=== PATIENT | male | born 1945 | race Caucasian/White ===

== ENCOUNTER 2020-10-24 10:46 | Inpatient (IN) | payer OTHER ==
[~2020-10-24] VITALS: Ht 188 cm; Wt 99.8 kg
[2020-10-24 11:14] LABS: HEMOGLOBIN 14.6 gm/dl (14.0-17.5); RED BLOOD COUNT 4.83 M/UL (4.20-5.50); WHITE BLOOD COUNT 20.6 K/UL (4.5-11.0)
[2020-10-24] MEDS ORDERED: LIPITOR40 MG PO (16:47)
[2020-10-24] MEDS ORDERED: SODIUM BICARBO650 M1 PO (16:47)
[2020-10-24] MEDS ORDERED: COREG12.5 MG PO (16:47)
[2020-10-24] MEDS ORDERED: NEURONTIN300 MG PO (16:47)
[2020-10-24] MEDS ORDERED: PROSCAR 5 MG TAB5 MG PO (16:48)
[2020-10-24] MEDS ORDERED: NORVASC10 MG PO (16:48)
[2020-10-24] MEDS ORDERED: RESTASIS 0.05%1 EACH EYEBOTH (16:49)
[2020-10-24] MEDS ORDERED: GLUCOSAMINE H1500 MG PO (17:08)
[2020-10-24] MEDS ORDERED: ASPIRIN EC81 MG PO (17:08)
[2020-10-25 02:23] LABS: HEMOGLOBIN 12.8 gm/dl (14.0-17.5)
[2020-10-25 02:26] LABS: RED BLOOD COUNT 4.24 M/UL (4.20-5.50); WHITE BLOOD COUNT 11.8 K/UL (4.5-11.0)
[2020-10-26 04:05] LABS: HEMOGLOBIN 13.4 gm/dl (14.0-17.5); RED BLOOD COUNT 4.46 M/UL (4.20-5.50)
[2020-10-26 04:08] LABS: WHITE BLOOD COUNT 8.8 K/UL (4.5-11.0)
[2020-10-27 02:58] LABS: HEMOGLOBIN 13.4 gm/dl (14.0-17.5); RED BLOOD COUNT 4.61 M/UL (4.20-5.50); WHITE BLOOD COUNT 7.9 K/UL (4.5-11.0)
[2020-10-28 03:33] LABS: HEMOGLOBIN 13.9 gm/dl (14.0-17.5); RED BLOOD COUNT 4.66 M/UL (4.20-5.50); WHITE BLOOD COUNT 7.4 K/UL (4.5-11.0)
[2020-10-29 03:22] LABS: RED BLOOD COUNT 4.71 M/UL (4.20-5.50); WHITE BLOOD COUNT 7.1 K/UL (4.5-11.0)
[2020-10-30 03:55] LABS: HEMOGLOBIN 13.7 gm/dl (14.0-17.5); RED BLOOD COUNT 4.55 M/UL (4.20-5.50); WHITE BLOOD COUNT 7.5 K/UL (4.5-11.0)
--- NOTE | 2020-10-30 11:00 | NUR ---
NO CHANGES FROM PREVIOUS ASSESSMENT
[2020-10-31 02:50] LABS: HEMOGLOBIN 13.6 gm/dl (14.0-17.5); RED BLOOD COUNT 4.68 M/UL (4.20-5.50)
--- NOTE | 2020-10-31 14:00 | NUR ---
NO CHANGE FROM PREVIOUS ASSESSMENT
[2020-11-02 03:40] LABS: BUN/CREATININE RATIO 19 (0-10)
[2020-11-02] MEDS ORDERED: CARVEDILOL3.125 MG PO (13:29)
[2020-11-02] MEDS ORDERED: FUROSEMIDE40 MG PO (13:32)
[2020-11-02] MEDS ORDERED: K-DUR TAB 20 M20 MEQ PO (13:32)
[2020-11-02] MEDS ORDERED: DOCUSATE SODIU100 MG PO (13:32)
[2020-11-02] MEDS ORDERED: NEURONTIN300 MG PO (13:57)
== END 2020-11-02 18:20 | DRG 242 ==
LOC: ER1 10:46 → CDU 16:51 → PROG CARE 16:51
PROVIDERS: Emergency Medicine; Internal Medicine; Physician Assistant Medical; ADMIT Internal Medicine
PROC: B24BZZ4 Ultrasonography of Heart with Aorta, Transesophageal (ICD-10-PCS; 2020-10-24)
PROC: B24BZZ4 Ultrasonography of Heart with Aorta, Transesophageal (ICD-10-PCS; 2020-10-26)
PROC: 5A09457 Assistance with Respiratory Ventilation, 24-96 Consecutive Hours, Continuous Positive Airway Pressure (ICD-10-PCS; 2020-10-27)
PROC: 0JH606Z Insertion of Pacemaker, Dual Chamber into Chest Subcutaneous Tissue and Fascia, Open Approach (ICD-10-PCS; principal; 2020-10-29)
PROC: 02HK3JZ Insertion of Pacemaker Lead into Right Ventricle, Percutaneous Approach (ICD-10-PCS; 2020-10-29)
PROC: 02H63JZ Insertion of Pacemaker Lead into Right Atrium, Percutaneous Approach (ICD-10-PCS; 2020-10-29)
DX: I48.92 Unspecified atrial flutter (principal); I50.33 Acute on chronic diastolic (congestive) heart failure; J96.01 Acute respiratory failure with hypoxia; J18.9 Pneumonia, unspecified organism; I13.0 Hypertensive heart and chronic kidney disease with heart failure and stage 1 through stage 4 chronic kidney disease, or unspecified chronic kidney disease; E87.2 Acidosis; E87.1 Hypo-osmolality and hyponatremia; N17.9 Acute kidney failure, unspecified; Z20.822 Contact with and (suspected) exposure to COVID-19; N40.0 Benign prostatic hyperplasia without lower urinary tract symptoms; I71.4 Abdominal aortic aneurysm, without rupture; I08.1 Rheumatic disorders of both mitral and tricuspid valves; K59.09 Other constipation; E78.5 Hyperlipidemia, unspecified; I27.20 Pulmonary hypertension, unspecified; I49.5 Sick sinus syndrome; N18.30 Chronic kidney disease, stage 3 unspecified; I25.10 Atherosclerotic heart disease of native coronary artery without angina pectoris; Z95.1 Presence of aortocoronary bypass graft; Z79.82 Long term (current) use of aspirin; Z98.42 Cataract extraction status, left eye; Z98.41 Cataract extraction status, right eye; Z82.49 Family history of ischemic heart disease and other diseases of the circulatory system
CPT/HCPCS: ECHO; 0241U; 33208; 36415; 36600; 71045; 80048; 80053; 81001; 82550; 82553; 82803; 82962; 83605; 83690; 83735; 83880; 84132; 84439; 84443; 84484; 85025; 85027; 85347; 85379; 85610; 85730; 87040; 93005; 93306; 93312; 93320; 93609; 93621; 94660; 94760; 96374; 97110-GP-CQ; 97116-GP-CQ; 97162; 97530-GP-CQ; 99152; 99153; 99285; C1730; C1733; C1766; C1785; C1898; J0456; J0696; J1200; J1644; J1650; J1940; J2250; J3010; J3370; J7030; J7040; J7050; J7070; Q9965

== ENCOUNTER 2020-11-12 20:06 | Emergency (ER) | payer OTHER ==
[~2020-11-12 20:06] MED LIST: ASPIRIN EC81 MG PO; CARVEDILOL3.125 MG PO; COREG12.5 MG PO; DOCUSATE SODIU100 MG PO; FUROSEMIDE40 MG PO; GLUCOSAMINE H1500 MG PO; K-DUR TAB 20 M20 MEQ PO; LIPITOR40 MG PO; NEURONTIN300 MG PO; NORVASC10 MG PO; PROSCAR 5 MG TAB5 MG PO; RESTASIS 0.05%1 EACH EYEBOTH; SODIUM BICARBO650 M1 PO
== END 2020-11-12 21:30 | disposition home or self-care (01) ==
LOC: ER1 20:06
DX: I10 Essential (primary) hypertension (principal); E78.5 Hyperlipidemia, unspecified; I51.9 Heart disease, unspecified; Z95.0 Presence of cardiac pacemaker
CPT/HCPCS: 99283